=== PATIENT | female | born 1975 | race Two or more races ===

== ENCOUNTER 2021-07-29 10:11 | Emergency (ER) | payer MEDICAID ==
[~2021-07-29] VITALS: Ht 152.4 cm; Wt 77.0 kg
[2021-07-29 10:19] VITALS: BP 134/72
[2021-07-29 12:16] LABS: CLARITY URINE CLOUDY (CLEAR); COLOR URINE DARK YELLOW (YELLOW); KETONES URINE NEGATIVE (NEGATIVE); LEUKOCYTE ESTERASE URINE 3+ (NEGATIVE); NITRITE URINE POSITIVE (NEGATIVE); OCCULT BLOOD URINE 2+ (NEGATIVE); PH URINE 6.5 (4.5-8.0); PROTEIN URINE 3+ (NEGATIVE); SPECIFIC GRAVITY URINE 1.021 (1.005-1.030)
[2021-07-29] MEDS ORDERED: CEPH500C2 MT (12:54)
[2021-07-29] MEDS ORDERED: CEPHALEXIN 250MG CAPSULE PO ONE (13:00)
== END 2021-07-29 13:19 | disposition home or self-care (01) ==
LOC: ER 10:11
DX: N30.00 Acute cystitis without hematuria (principal); B96.20 Unspecified Escherichia coli [E. coli] as the cause of diseases classified elsewhere
CPT/HCPCS: 81003; 81025; 87077; 87186; 99283

== ENCOUNTER 2021-12-06 18:42 | Emergency (ER) | payer MEDICAID ==
[~2021-12-06] VITALS: Ht 154.9 cm; Wt 73.0 kg
[~2021-12-06 18:42] MED LIST: CEPH500C2 MT
[2021-12-06] MEDS ORDERED: VISCOUS LIDOCAINE 2% 15 ML UDC PO STA (20:33)
[2021-12-06 20:45] VITALS: BP 125/73
[2021-12-06] MEDS ORDERED: KETOROLAC 15MG/ML VIAL IM ONE (20:45)
[2021-12-06 21:01] LABS: CHLORIDE 109 mEq/L (98-107)
[2021-12-06 21:04] LABS: BASOPHILS % 0.4 % (0.0-2.0); HEMATOCRIT. 38.9 % (36.0-48.0); HEMOGLOBIN. 12.8 g/dL (12.0-16.0); LYMPHOCYTES % 31.2 % (20.0-50.0); MEAN CORPUSCULAR HEMOGLOBIN 30.2 pg (28.0-32.0); MEAN CORPUSCULAR VOLUME 91.7 fL (81.0-99.0); MEAN PLATELET VOLUME 7.5 fl (7.4-10.4); MONOCYTES % 5.5 % (2.0-8.0); NEUTROPHILS % 60.9 % (40.0-76.0); PLATELET 325 x1000/uL (130-400); RED BLOOD CELL COUNT 4.24 mill/uL (4.2-5.4); RED CELL DISTRIBUTION WIDTH 13.8 % (11.6-14.6)
[2021-12-06 21:13] LABS: B-HCG QUANTITATIVE < 1 mIU/mL (<3)
== END 2021-12-07 03:50 | disposition home or self-care (01) ==
LOC: ER 18:42
DX: R05.9 Cough, unspecified (principal); R07.0 Pain in throat; Z20.822 Contact with and (suspected) exposure to COVID-19
CPT/HCPCS: 36415; 71045; 80053; 84702; 85025; 87070; 87426; 87430; 96372; 99284; C9803; J1885

== ENCOUNTER 2021-12-11 09:41 | Emergency (ER) | payer MEDICAID ==
[~2021-12-11] VITALS: Ht 160 cm; Wt 66.0 kg
[2021-12-11 09:46] VITALS: BP 126/84
[2021-12-11 10:36] LABS: CLARITY URINE CLOUDY (CLEAR); COLOR URINE DARK YELLOW (YELLOW); KETONES URINE NEGATIVE (NEGATIVE); LEUKOCYTE ESTERASE URINE 2+ (NEGATIVE); NITRITE URINE POSITIVE (NEGATIVE); OCCULT BLOOD URINE 1+ (NEGATIVE); PH URINE 7.5 (4.5-8.0); PROTEIN URINE 1+ (NEGATIVE); SPECIFIC GRAVITY URINE 1.018 (1.005-1.030)
[2021-12-11] MEDS ORDERED: LEVO500T90 MT (11:13)
== END 2021-12-11 11:41 | disposition home or self-care (01) ==
LOC: ER 09:41
DX: N30.00 Acute cystitis without hematuria (principal)
CPT/HCPCS: 81003; 87077; 87186; 99283